=== PATIENT | male | born 1960 | race Caucasian/White ===

== ENCOUNTER 2017-12-01 16:03 | Emergency (ER) | payer MEDICAID, OTHER ==
[~2017-12-01] VITALS: Ht 172.7 cm; Wt 86.2 kg
[~2017-12-01 16:03] MED LIST: BEN50 PO
[2017-12-01 16:06] VITALS: BP 147/81
[2017-12-01] MEDS ORDERED: TETRACAINE HCL/PF 0.5% OPTH 4 ML BTL OP ONE (16:30)
[2017-12-01] MEDS ORDERED: FLUORESCEIN OPTH STRIP 0.6 MG OP ONE (16:30)
--- NOTE | 2017-12-01 16:39 | NUR ---
57m bib self with c/o 5/10 dull "constant" left eye pain x 1 day. 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 Swelling and sclera redness noted to left eye. Clear discharge discharge noted. Pt sts blurry vision to left eye pain. Pt is aox4 with steady gait. RR are even and unlabored. NAD at this time. Awaiting for ct. Will continue to monitor.
--- NOTE | 2017-12-01 18:00 | NUR ---
nick lynch by bedside performing eye exam. pt tolerated well.
[2017-12-01] MEDS ORDERED: TOBRAMYCIN 0.3% OPTH OINT 3.5 GM TUBE LEFT EYE SCH (18:20)
[2017-12-01 18:45] VITALS: BP 147/81
--- NOTE | 2017-12-01 18:46 | NUR ---
Patient discharged with v/s stable. Written and verbal after care instructions given and explained. Patient alert, oriented and verbalized understanding of instructions. Ambulatory with steady gait. All questions addressed prior to discharge. ID band removed. Patient advised to follow up with PMD. Rx of NORCO, MOTRIN TOBREX EYE OINTMENT given. Patient educated on indication of medication including possible reaction and side effects. Opportunity to ask questions provided and answered.
== END 2017-12-01 18:46 | disposition home or self-care (01) ==
LOC: MED 16:03
DX: T15.92XA Foreign body on external eye, part unspecified, left eye, initial encounter (principal); Z88.1 Allergy status to other antibiotic agents; X58.XXXA Exposure to other specified factors, initial encounter; Y93.89 Activity, other specified; Y92.89 Other specified places as the place of occurrence of the external cause; Y99.8 Other external cause status
CPT/HCPCS: 65205; 70480; 99284

== ENCOUNTER 2019-11-20 06:20 | Emergency (ER) | payer MEDICAID, OTHER ==
[~2019-11-20] VITALS: Ht 172.7 cm; Wt 79.6 kg
[2019-11-20 06:30] VITALS: BP 143/87
--- NOTE | 2019-11-20 06:30 | NUR ---
PT AMBULATED TO ER BED 09
--- NOTE | 2019-11-20 06:49 | NUR ---
PATIENT SITTING UP IN BED. BIB SELF WITH REPORTS OF COLD SYMPTOMS. PATIENT STATES COUGH, CONGESTION, HEAD ACHE. PATIENT LUNG SOUNDS CLEAR, ABD SOFT NON-TENDER WITH NO NVD. PATIENT STATES HX OF BPH. NO OTHER SYMPTOMS REPORTED.
--- NOTE | 2019-11-20 06:53 | NUR ---
FLU SWAB COLLECTED.
--- NOTE | 2019-11-20 07:16 | NUR ---
PT AMB TO RESTROOM WITH STEADY GAIT.
--- NOTE | 2019-11-20 07:16 | NUR ---
RECEIVED REPORT FROM KEMI SEGURA. PT RESTING IN BED. NO SIGNS OF DISTRESS.
--- NOTE | 2019-11-20 07:28 | NUR ---
DR. SALAZAR EVALUATING PT AT BEDSIDE
[2019-11-20] MEDS ORDERED: IBUPROFEN 800 MG TAB PO ONE (08:10)
--- NOTE | 2019-11-20 08:18 | NUR ---
Patient discharged with v/s stable. Written and verbal after care instructions given and explained. Patient alert, oriented and verbalized understanding of instructions. Ambulatory with steady gait. All questions addressed prior to discharge. ID band removed. Patient advised to follow up with PMD. Rx of PROMETHAZINE DM, MOTRIN, AZITHROMYCIN given. Patient educated on indication of medication including possible reaction and side effects. Opportunity to ask questions provided and answered.
[2019-11-20 08:19] VITALS: BP 141/83
== END 2019-11-20 08:18 | disposition home or self-care (01) ==
LOC: MED 06:20
DX: J02.8 Acute pharyngitis due to other specified organisms (principal); B96.89 Other specified bacterial agents as the cause of diseases classified elsewhere; J32.9 Chronic sinusitis, unspecified; R03.0 Elevated blood-pressure reading, without diagnosis of hypertension; F17.200 Nicotine dependence, unspecified, uncomplicated; Z79.899 Other long term (current) drug therapy; Z88.1 Allergy status to other antibiotic agents
CPT/HCPCS: 71045; 87804; 99284; Q0092

== ENCOUNTER 2021-03-25 16:48 | Emergency (ER) | payer OTHER ==
[~2021-03-25] VITALS: Ht 172.7 cm; Wt 88.5 kg
[2021-03-25 17:03] VITALS: BP 125/89
[2021-03-25 17:36] LABS: BASOPHILS # (AUTO) 0.1 K/uL (0.00-0.22); BASOPHILS % (AUTO) 0.9 % (0.0-2.0); EOSINOPHILS # (AUTO) 0.1 K/uL (0-0.4); EOSINOPHILS % (AUTO) 1.6 % (0.0-4.0); HEMATOCRIT 49.8 % (36-52); HEMOGLOBIN 16.8 g/dL (12.0-18.0); LYMPHOCYTES # (AUTO) 2.8 K/uL (2.0-11.5); LYMPHOCYTES % (AUTO) 32.3 % (20.5-51.1); MEAN CORPUSCULAR HEMOGLOBIN 30 pg (27-31); MEAN CORPUSCULAR HGB CONC 34 g/dL (33-37); MEAN CORPUSCULAR VOLUME 87.7 fL (80-94); MONOCYTES # (AUTO) 0.8 K/uL (0.8-1.0); MONOCYTES % (AUTO) 9.6 % (1.7-9.3); NEUTROPHILS # (AUTO) 4.8 K/uL (1.8-7.7); NEUTROPHILS % (AUTO) 55.6 % (42.2-75.2); PLATELET COUNT (AUTO) 211 K/uL (140-450); RED BLOOD CELL COUNT(AUTO) 5.69 MIL/uL (4.20-6.10); RED CELL DISTRIBUTION WIDTH 13.8 % (11.6-13.7); WHITE BLOOD COUNT (AUTO) 8.6 K/uL (4.8-10.8)
[2021-03-25 17:52] LABS: ANION GAP 15.2 (8-16); CARBON DIOXIDE 27.5 mmol/L (21-32); CREATININE 1.3 mg/dL (0.6-1.3); POTASSIUM 4.7 mmol/L (3.5-5.1)
[2021-03-25] MEDS ORDERED: NACL 0.9% 1,000 ML IV ONE (18:00)
[2021-03-25] MEDS ORDERED: CIPR500T4 PO (18:27)
[2021-03-25 19:37] VITALS: BP 119/78
== END 2021-03-25 19:35 | disposition home or self-care (01) ==
LOC: MED 16:48
DX: E11.65 Type 2 diabetes mellitus with hyperglycemia (principal); N39.0 Urinary tract infection, site not specified; F17.210 Nicotine dependence, cigarettes, uncomplicated
CPT/HCPCS: 36415; 80048; 81002; 82948; 85025; 96360; 99283; J7030

== ENCOUNTER 2021-03-28 08:56 | Emergency (ER) | payer OTHER ==
[~2021-03-28] VITALS: Ht 172.7 cm; Wt 75.3 kg
[~2021-03-28 08:56] MED LIST changes: +CIPR500T4 PO
[2021-03-28 09:51] VITALS: BP 138/91
--- NOTE | 2021-03-28 11:08 | NUR ---
PT AMBULATED TO BED 02
--- NOTE | 2021-03-28 11:10 | NUR ---
PATIENT 60 Y/O MALE BIB SELF FOR C/O ABSCESS IN L BUTTOCKS. PER PATIENT," IT SHOWED UP 5 DAYS AGO BUT ITS BEEN GETTING BIGGER." PATIENT STATES WENT TO MD AND IS TAKING CIPRO FOR IT. PATIENT NOTED WITH RED RAISED BUMP ON INNER BUTTOCKS 2CM X 2CM. NO DRAINAGE NOTED. MEDHX: DM TYPE II, HTN ALELRGIES: TETRACYCLINE
--- NOTE | 2021-03-28 11:45 | NUR ---
LYNN ESPINOZA AT BEDSIDE FOR MEDICAL EVALUATION.
[2021-03-28] MEDS ORDERED: LIDOCAINE MPF 1% 10 MG/ML VIAL INJ ONE (11:50)
--- NOTE | 2021-03-28 12:02 | NUR ---
I&D Procedure done by LYNN ESPINOZA . Wound packed with IODOFORM. Pt tolerated procedure well. Wound care discussed w/ patient.
--- NOTE | 2021-03-28 12:17 | NUR ---
APPLIED DRESSING TO LEFT BUTTOCKS WITHOUT ANY ISSUES
[2021-03-28] MEDS ORDERED: DOCU-299 PO (12:19)
[2021-03-28] MEDS ORDERED: SULF-58 PO (12:19)
[2021-03-28] MEDS ORDERED: IBUP-1842 PO (12:20)
[2021-03-28 12:31] VITALS: BP 132/88
--- NOTE | 2021-03-28 12:31 | NUR ---
Patient discharged with v/s stable. Written and verbal after care instructions given and explained. Patient alert, oriented and verbalized understanding of instructions. Ambulatory with steady gait. All questions addressed prior to discharge. ID band removed. Patient advised to follow up with PMD. Rx of BACTRIM, MOTRIN, AND COLACE given. Patient educated on indication of medication including possible reaction and side effects. Opportunity to ask questions provided and answered.
== END 2021-03-28 12:30 | disposition home or self-care (01) ==
LOC: MED 08:56
DX: L02.31 Cutaneous abscess of buttock (principal); E11.9 Type 2 diabetes mellitus without complications; I10 Essential (primary) hypertension; Z79.899 Other long term (current) drug therapy; Z88.1 Allergy status to other antibiotic agents
CPT/HCPCS: 10060; 99283; J2001

== ENCOUNTER 2021-03-30 12:43 | Emergency (ER) | payer OTHER ==
[~2021-03-30] VITALS: Ht 172.7 cm; Wt 75.7 kg
[~2021-03-30 12:43] MED LIST changes: +DOCU-299 PO; +IBUP-1842 PO; +SULF-58 PO
[2021-03-30 12:47] VITALS: BP 119/83
[2021-03-30] MEDS ORDERED: LIDOCAINE MPF 1% 10 MG/ML VIAL INJ ONE (13:20)
[2021-03-30] MEDS ORDERED: KETOROLAC 30 MG/ML VIAL IM ONE (13:20)
[2021-03-30] MEDS ORDERED: LIDOCAINE/EPI 1% 1:100000 20 ML VIAL INJ ONE (13:21)
[2021-03-30 13:48] VITALS: BP 119/83
== END 2021-03-30 13:49 | disposition home or self-care (01) ==
LOC: MED 12:43
DX: L02.31 Cutaneous abscess of buttock (principal); E11.9 Type 2 diabetes mellitus without complications; I10 Essential (primary) hypertension; Z79.899 Other long term (current) drug therapy; Z88.1 Allergy status to other antibiotic agents
CPT/HCPCS: 10060; 96372; 99283; J1885; J2001

== ENCOUNTER 2021-05-29 21:07 | Emergency (ER) | payer OTHER ==
[~2021-05-29] VITALS: Ht 172.7 cm; Wt 88.5 kg
[2021-05-29 21:15] VITALS: BP 137/82
--- NOTE | 2021-05-29 21:18 | NUR ---
TO LOBBY A/W BED AMBULATORY
--- NOTE | 2021-05-29 22:38 | NUR ---
NOTIFIED BY ER ADMIT PIE FILLER THAT PATIENT HAS LEFT FACILITY. PATIENT LEFT WITHOUT BEING SEEN BY DR. ALVARADO. NO FURTHER CARE PROVIDED FOR PATIENT.
== END 2021-05-29 22:38 | disposition left against medical advice (07) ==
LOC: MED 21:07
DX: M25.561 Pain in right knee (principal); Z53.21 Procedure and treatment not carried out due to patient leaving prior to being seen by health care provider

== ENCOUNTER 2023-10-29 16:50 | Emergency (ER) | payer OTHER ==
[~2023-10-29] VITALS: Ht 167.6 cm; Wt 59.0 kg
[2023-10-29 17:16] VITALS: BP 120/75; PULSE 104; RESP 18; TEMP 98; O2SAT 96
[2023-10-29 18:52] LABS: BASOPHILS # (AUTO) 0.1 K/uL (0.00-0.22); BASOPHILS % (AUTO) 1.1 % (0.0-2.0); EOSINOPHILS # (AUTO) 0.1 K/uL (0-0.4); EOSINOPHILS % (AUTO) 1.3 % (0.0-4.0); HEMATOCRIT 40.2 % (36-52); HEMOGLOBIN 13.6 g/dL (12.0-18.0); LYMPHOCYTES % (AUTO) 24.7 % (20.5-51.1); MEAN CORPUSCULAR HEMOGLOBIN 29 pg (27-31); MEAN CORPUSCULAR HGB CONC 34 g/dL (33-37); MEAN CORPUSCULAR VOLUME 86.6 fL (80-94); MONOCYTES % (AUTO) 12.1 % (1.7-9.3); NEUTROPHILS % (AUTO) 60.8 % (42.2-75.2); PLATELET COUNT (AUTO) 217 K/uL (140-450); RED BLOOD CELL COUNT(AUTO) 4.64 MIL/uL (4.20-6.10); RED CELL DISTRIBUTION WIDTH 13.9 % (11.6-13.7); WHITE BLOOD COUNT (AUTO) 8.2 K/uL (4.8-10.8)
[2023-10-29 19:09] LABS: ANION GAP 11.9 (8-16); CALCIUM 8.1 mg/dL (8.5-10.1); CARBON DIOXIDE 28.4 mmol/L (21-32); CREATININE 0.9 mg/dL (0.6-1.3); POTASSIUM 4.3 mmol/L (3.5-5.1)
[2023-10-29 19:17] LABS: ALCOHOL, BLOOD < 3 mg/dL (<10); CREATINE KINASE, TOTAL 25 U/L (39-308)
[2023-10-29 20:27] LABS: APPEARANCE,URINE CLEAR (CLEAR); BILIRUBIN,URINE NEGATIVE (NEGATIVE); BLOOD, URINE TRACE-I (NEGATIVE); COLOR,URINE YELLOW (YELLOW); LEUKOCYTE ESTERASE ,URINE NEGATIVE (NEGATIVE); NITRITE, URINE POSITIVE (NEGATIVE); PROTEIN,URINE TRACE (NEGATIVE); UGLUCOSE 3+ (NEGATIVE)
[2023-10-29 20:31] LABS: RBC,URINE 0-5 /HPF (0-5)
[2023-10-29 20:33] LABS: BACTERIA,URINE 1+ /HPF (None Seen); MUCUS,URINE None Seen /LPF (None Seen); SQUAMOUS EPITHELIAL CELL,UR 0-3 (FEW) /LPF (0-3 (FEW)); WBC,URINE 0-5 /HPF (0-5)
[2023-10-29 20:39] LABS: AMPHETAMINE, URINE NEGATIVE ng/ml (NEG <=1000); BARBITURATE, URINE NEGATIVE ng/ml (NEG <=200)
[2023-10-29 20:40] LABS: BENZODIAZEPINE, URINE NEGATIVE ng/mL (NEG <=200); CANNABINOID, URINE NEGATIVE ng/mL (NEG <=50); COCAINE, URINE NEGATIVE ng/mL (NEG <=300); OPIATE, URINE NEGATIVE ng/mL (NEG <=2000); PHENCYCLIDINE SCREEN,URINE NEGATIVE ng/mL (NEG <=25)
[2023-10-29 20:49] VITALS: O2SAT 96
== END 2023-10-29 22:38 | disposition home or self-care (01) ==
LOC: MED 16:50
DX: S39.012A Strain of muscle, fascia and tendon of lower back, initial encounter (principal); B34.9 Viral infection, unspecified; Z79.899 Other long term (current) drug therapy; X58.XXXA Exposure to other specified factors, initial encounter; Y93.89 Activity, other specified; Y92.89 Other specified places as the place of occurrence of the external cause; Y99.8 Other external cause status
CPT/HCPCS: 36415; 70450; 71045; 80048; 80305; 81001; 82550; 84484; 85025; 87086; 93005; 99285; G0482